=== PATIENT | male | born 1975 | race Caucasian/White ===

== ENCOUNTER 2018-12-01 11:17 | Emergency (ER) | payer SELFPAY ==
[2018-12-01 11:17] VITALS: BP 145/82; PULSE 77; RESP 18; TEMP 37.1; O2SAT 97; BMI 25.7
--- NOTE | 2018-12-01 11:50 | EKG12_ITS ---
Test Reason : CP Blood Pressure : / mmHG Vent. Rate : 068 BPM Atrial Rate : 068 BPM P-R Int : 162 ms QRS Dur : 084 ms QT Int : 394 ms P-R-T Axes : 077 045 063 degrees QTc Int : 418 ms Normal sinus rhythm with sinus arrhythmia Normal ECG Confirmed by BOONE CABALLERO ([id number]), editor index ELIU SKINNER ([id number]) on 12/08/2018 10:12:01 AM Referred By: SACHI
[2018-12-01] MEDS: Ketorolac 15 MG/ML Vial IV (12:02)
[2018-12-01] MEDS: Ondansetron 4 MG/2 ML Vial IV (12:03)
[2018-12-01 12:04] LABS: Absolute Lymphocyte Count 2.77 X10^3/uL (0.83-4.51); Absolute Neutrophil Count 4.2 X10^3/uL (2.0-7.7); Basophil# 0.06 X10^3/uL; Basophil% 0.8 % (0-1); Eosinophil# 0.09 X10^3/uL; Eosinophils% 1.2 % (0-5); Hematocrit 42.9 % (40-54); Lymphocyte # 2.77 X10^3/ul (4.0); Lymphocyte % 35.8 % (19-41); Mean Corpuscular Hgb 31.1 pg (27.0-32.0); Mean Platelet Vol. 9.4 fl (6.2-12.0); Monocyte# 0.64 X10^3/uL; Monocyte% 8.3 % (0-10); NRBC Flagged by Analyzer 0 % (0-5); Neutrophil # 4.16 X10^3/uL (2.7-7.7); Neutrophil % 53.6 % (47-70); Platelet Count 229 K/mm3 (150-450); RBC Distribution Width CV 12.3 % (11.6-14.6); Red Blood Count 4.82 M/mm3 (4.6-6.2); White Blood Count 7.7 K/mm3 (4.4-11.0)
--- NOTE | 2018-12-01 12:04 | ED.DCSUM_ITS ---
History of Present Illness Chief Complaint: Chest Pain Detail of Chief Complaint: Incident chest pain, flashing lights and headache Informant: Patient Onset: Days - Onset November 27 Context: Sudden Onset Timing: Intermittent Quality: Pain Location: Central chest and bilateral headache Current Severity: Mild Maximum Severity: Moderate Worsened by: Nothing regarding chest pain, possibly light regarding headache Relieved by: Combing techniques Associated Symptoms: Patient concern panic attack. No history of panic attacks Narrative: Patient is a 43-year-old male who presents because of transient central chest pain lasting 5 seconds. He had 3 episodes Friday, one episode Friday and no episodes on Friday or Friday. He had an episode today. He also reports flashing lights both eyes with bilateral headache. The headache is associated with mild light sensitivity and minimal nausea without vomiting. He denies double vision, blurred vision or loss of vision. He denies trouble with speech or swallowing. He denies paresthesia, anesthesia or motor weakness. He has no history of migraine headaches. There is no history of trauma. He denies neck pain or neck stiffness. He denies fever, chills or night sweats. He states he has had episodes where he gets anxious. He is use calming techniques in the past with resolution of his symptoms. Prior similar symptoms: No Recent Illness/Hospitalization: No - Past Medical History (1) No significant past medical history Status: Acute Past Medical History - Allergies and Home Meds Allergies/Adverse Reactions: Allergies No Known Allergies Allergy (Verified 12/01/18 11:20) Primary Care Physician: Valarie Carlson DO [Primary Care Provider] - Prior records reviewed: Yes Surgical History: no surgical history Lives: Alone Smoking Status: Current every day smoker Alcohol: Rare Drugs: None Review of Systems General: Denies: Chills, Fever, Sweats Eyes: Denies: Visual changes - bilaterally, Blurred Vision - bilaterally, Diplopia ENT: Denies: Bilateral ear pain, Rhinorrhea, Sore throat Cardiovascular: Reports: Chest pain. Denies: Palpitations, Heart racing Gastrointestinal: Reports: Nausea. Denies: Abdominal pain, Vomiting, Diarrhea, Constipation, Melena, Hematochezia, -, - Genitourinary: Denies: Dysuria, Hematuria, Frequency Musculoskeletal: Denies: Myalgias, Arthralgias, Neck pain, Back pain, Swelling, Extremity Pain, -, - Neurological: Reports: Headache, - - Scintillating scotoma bilaterally. Denies: Weakness, Parasthesia, Numbness Psych: Reports: Anxiety Endocrine: Denies: Polyuria, Polydipsia Hematologic: Denies: Easy bruising, Easy bleeding Allergy: Denies: Uticaria, Swelling of the mouth, Swelling of the tongue Physical Exam Vital Signs/Narrative: Vital Signs Temp Pulse Resp BP Pulse Ox 12/01/18 11:17 98.7 F 77 18 145/82 H 97 Inital Vital Signs reviewed: Yes General: Well nourished, Well developed, No Acute Distress Head: Normocephalic, Atraumatic Eyes: Perrl, EOMI. Negative for: Pale conjunctiva, Scleral icterus ENT: Moist mucous membranes, No rhinorrhea, TM's clear Neck: Supple, Nontender Cardiovascular: Regular rate, Regular rhythm, No murmurs, Normal S1, Normal S2 Respiratory: No distress, CTA bilaterally, Chest nontender Abdomen: Soft, Nontender, Nondistended, Normal bowel sounds Back: Nontender, Normal Inspection Extremities: Nontender, No edema Skin: Normal color, No rash Neurological: Alert, Oriented x3, Cranial nerves II-XII grossly intact, Normal Strength, Normal Sensation, Normal DTR, Normal Gait Psychological: Normal affect, Normal Mood Diagnostic/Tx/Re-eval Laboratory Results 12/01/18 12/01/18 11:56 11:56 WBC 7.7 RBC 4.82 Hgb 15.0 Hct 42.9 MCV 89.0 MCH 31.1 MCHC 35.0 RDW Std Deviation 40.0 RDW Coeff of Ania 12.3 Plt Count 229 MPV 9.4 Immature Gran % (Auto) 0.300 Neut % (Auto) 53.6 Lymph % (Auto) 35.8 B[place]le % (Auto) 8.3 Eos % (Auto) 1.2 Baso % (Auto) 0.8 Absolute Neuts (auto) 4.2 Absolute Lymphs (auto) 2.77 Nucleated RBC % 0 Sodium 141 Potassium 3.8 Chloride 110 H Carbon Dioxide 29.0 Anion Gap 2 L BUN 16 Creatinine 0.95 Estim Creat Clear Calc 110.05 Est GFR (MDRD) Af Amer 111 Est GFR (MDRD) Non-Af 92 BUN/Creatinine Ratio 16.8 Glucose 81 Calcium 8.7 Operatory tests are unremarkable. Patient was reassessed at 1 2: 3 0. His headache has resolved. Patient states sometimes he makes things worse. He did describe fight or flight and was concerned this may represent panic attack. He was informed there may be a component of anxiety. He was informed the cause of his chest pain is unknown. He was told the cause is not cardiac. - EKG Initial EKG Interpretation: Sinus Rhythm - Ventricular rate 68. SD interval 160 ms. QS duration 84 ms. QT duration 394 ms. [place] is normal. The EKG is normal. - Medical Decision Making She was obtained per nurse protocol. Patient with transient pain not suggestible or consistent with cardiac. With a complaint of by lateral headache and since laying scotoma this may represent vascular headache. With no fever neck pain or neck stiffness doubt subarachnoid hemorrhage or meningitis. He was medicated with IV Toradol and will be reevaluated. CBC and basic meta Bolick panel was obtained. Patient's headache has resolved with IV Toradol. Suspect migraine variant. ED Disposition - Plan for ED Patient: Disposition: Home or Assisted Living Diagnosis: Scintillating scotoma of both eyes, Atypical migraine, Non-cardiac chest pain, Anxiety Instructions: Anxiety Reaction, HEADACHE, Unspecified Referrals: Valarie Carlson DO [Primary Care Provider] - 1 Week
[2018-12-01 12:14] LABS: Anion Gap 2 (5-15); BUN 16 mg/dL (7-18); BUN/Creat Ratio 16.8 RATIO (10-20); Calcium,Total 8.7 mg/dL (8.5-10.1); Chloride 110 mmol/L (98-107); Creatinine, Serum 0.95 mg/dL (0.70-1.30); EST Glomerular Filtration Rate 92 mL/min (>60); Est Glom Filt Rate - Afr Amer 111 mL/min (>60); Estimated Creatinine Clearance 110.05 ml/min; Glucose 81 mg/dL (74-106); Potassium 3.8 mmol/L (3.5-5.1); Sodium Level 141 mmol/L (136-145)
[2018-12-01 12:32] VITALS: BP 129/86; PULSE 54; RESP 15; O2SAT 98
[2018-12-01 12:52] VITALS: BP 119/87; PULSE 69; RESP 15; O2SAT 98
== END 2018-12-01 12:53 | disposition home or self-care (01) ==
PROVIDERS: Emergency Provider Emergency Medicine; Family Provider Internal Medicine; PCP Internal Medicine
DX: H53.123 Transient visual loss, bilateral (principal); G43.009 Migraine without aura, not intractable, without status migrainosus; R07.89 Other chest pain; F41.9 Anxiety disorder, unspecified; F17.200 Nicotine dependence, unspecified, uncomplicated
CPT/HCPCS: 80048; 85025; 93005; 96374; 96375; 99284; J7030; A4216; J2405

== ENCOUNTER 2020-04-12 07:55 | Emergency (ER) | payer SELFPAY ==
[2020-04-12 07:56] VITALS: BP 162/101; PULSE 68; RESP 18; TEMP 36.6; O2SAT 99; BMI 25.7
--- NOTE | 2020-04-12 08:25 | ED.VISSUMM ---
- ER Visit Summary Date of Service: 04/12/20 Chief Complaint: [Dental swelling] History of Present Illness: The patient is a 44 M [[place] to the emergency department with complaint of dental swelling and pressure in his mouth. Patient was seen by his dentist 10 days ago and was supposed to have a prescription for some dental pain to his left lower jaw however patient states that every time he went to the pharmacy the prescription was not there. 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 This morning he woke up and had increased swelling and pressure. Patient felt he was may be having some trouble swallowing so he was referred to the emergency department. He is not had any fever. Patient not a diabetic. No other medical history. Patient is a smoker.] Physical Examination: [HEENT-PERRLA, EOMI. Cranial nerves II through XII grossly intact. TMs clear. Mucous membranes moist. No adenopathy. Dentition-patient does have some tenderness palpation over the left lower molars and premolars and there is discrete gingival swelling adjacent to the premolars and molars with some faint central fluctuance noted. There is no facial cellulitis. No significant adenopathy noted. No evidence of Albert's angina. He is able to touch his tongue to the roof of his mouth without difficulty. Cardiovascular-regular rate and rhythm without murmur or ectopy Lungs-clear to auscultation, chest wall stable without crepitus or subcu emphysema Abdomen-normoactive bowel sounds, soft, nontender, no rebound or rigidity, no peritoneal signs. Extremities-intact ?4, normal range of motion, normal pulses, atraumatic] Test Results: [None indicated] Emergency Department Course and Treatment: [Patient was offered an incision and drainage of the suspected abscess to which she agreed. Using a 18-gauge needle I made a stab incision to the most fluctuant portion of the suspected abscess and only small amount of blood and minimal purulent debris expressed.] Patient was given 1 dose of clindamycin 300 mg p.o. Treatment Plan: [Patient will be switched over to clindamycin and referred back to his dentist. At this point I suspect there is more inflammation cellulitis than discrete abscess. Patient advised to return if increased redness, swelling, fever, or condition should worsen anyway.] Disposition: [Discharged home in stable condition] Impression: [Dental abscess with incision and drainage] This note was generated with [employer] dictation software. It may contain incorrect words, spelling, and punctuation that were not noted in review of the chart prior to signing ED Disposition - Plan for ED Patient: Referrals: Valarie Carlson DO [Primary Care Provider] -
--- NOTE | 2020-04-12 08:28 | ED.DEP ---
ED Disposition - Plan for ED Patient: Instructions: ED Abscess Incision And Drainage Prescriptions: Clindamycin HCl [Cleocin] 300 mg PO Q6H #40 cap Prescription Printed Referrals: Valarie Carlson DO [Primary Care Provider] - Additional Instructions: see your dentist in 3-5 days
[2020-04-12] MEDS: Clindamycin HCl 150 MG Capsule 300 MG PO (08:31)
== END 2020-04-12 08:31 | disposition home or self-care (01) ==
LOC: ED 08:31
PROVIDERS: Emergency Provider Emergency Medicine; PCP Internal Medicine
DX: K04.7 Periapical abscess without sinus (principal); F17.200 Nicotine dependence, unspecified, uncomplicated
CPT/HCPCS: 41800; 99283